=== PATIENT | male | born 1975 | race Caucasian/White ===

== ENCOUNTER 2022-08-13 16:45 | Emergency (ER) | payer SELFPAY ==
[2022-08-13] MEDS ORDERED: Bupivacaine 0.5% 10 ML SDV INJECT ONE (18:01)
[2022-08-13] MEDS ORDERED: Lidocaine 1% 10 ML MDV INJECT ONE (18:01)
[2022-08-13] MEDS ORDERED: Diphtheria,Pertussis(Acell),Tetanus Vaccine 0.5 ML Syringe IM ONE (18:17)
== END 2022-08-13 18:41 ==
LOC: JD.ED 16:45
DX: S62.627B Displaced fracture of middle phalanx of left little finger, initial encounter for open fracture (principal); Z23 Encounter for immunization; W23.1XXA Caught, crushed, jammed, or pinched between stationary objects, initial encounter
CPT/HCPCS: 64400; 73140; 90471; 90715; 99284; J3490